=== PATIENT | male | born 1960 | race Asian ===

== ENCOUNTER 2020-01-31 12:10 | Emergency (ER) | payer OTHER ==
[~2020-01-31] VITALS: Ht 170.2 cm; Wt 89.8 kg
[2020-01-31 12:10] VITALS: BP 147/85
--- NOTE | 2020-01-31 12:59 | Emergency Room Report ---
History of Present Illness General Chief Complaint: Male Urogenital Problems Source: Patient Present Illness HPI Disclaimer: Please note that this report is being documented using DRAGON technology. This can lead to erroneous entry secondary to incorrect interpretation by the dictating instrument. HPI: 59-year-old male history of diabetes presents for groin pain. Patient states he has felt a palpable mass over the left side of the scrotum for the past 5 days that became painful this morning. He was seen in clinic and referred here for to rule out testicular torsion. He reports a swelling over the side of the scrotum but not over the testicles itself. He denies pain in the testicles, dysuria, hematuria, penile discharge, hematuria or bleeding. There were no trauma reported. No prior history of infection. Denies recent fever, chills, abdominal pain, nausea, vomiting, diarrhea. PMH: Diabetes PSH: Denied Allergies: Denied Social Hx: Denied Allergies: Coded Allergies: No Known Allergies (Unverified , 01/31/20) COVID-19 Screening Contact w/high risk pt: No Experienced COVID-19 symptoms?: No COVID-19 Testing performed [employer]: No Nursing Documentation-PMH Hx Hypertension: Yes Hx Diabetes: Yes Review of Systems All Other Systems: negative except mentioned in HPI Physical Exam Vital Signs Date Time Temp Pulse Resp B/P (MAP) Pulse Ox O2 Delivery O2 Flow Rate FiO2 01/31/20 12:10 98.2 95 16 147/85 (105) 99 Room Air General: Awake and alert, no acute distress HEENT: NC/AT. EOMI. Resp: Normal work of breathing Abdomen: Soft, nontender, nondistended : Circumcised male. Testicles anatomic position. No tenderness over the testicles, no edema over the scrotum. Just lateral to the scrotum on the left side there is a 3 x 3 palpable firm, non-fluctuant mass with indurated skin. Small pustule on top but is intact. No bleeding or drainage. Skin: Intact. No abrasions, laceration or rash over the exposed skin MSK: Normal tone and bulk. Moving all extremities. No obvious deformity. Neuro: Awake and alert. Mentating appropriately Procedures Incision and Drainage Incision and Drainage : Consent: Verbal Site: Left groin Blade Size: 11 I & D Procedure: betadine prep, sterile drapes applied, sterile dressing applied, gauze wick placed Wound Location: pelvis Wound's Depth, Shape: superficial, linear Wound Length (cm): 2 Wound Explored: clean Irrigated w/ Saline (ccs): 200 Anesthesia: 1% Lidocaine Volume Anesthetic (ccs): 8 Patient Tolerated: Well Complications: None Medical Decision Making Diagnostic Impression: Primary Impression: Groin abscess ER Course 59-year-old male presents for evaluation of painful groin mass. Patient is primarily Persian speaking and history, physical exam, procedure, discharge were done through the use of a Persian staff interpreter. Concern for abscess, cellulitis, testicular torsion, testicular mass among others. No torsion or mass identified but findings are consistent with a superficial abscess. This was incised and drained by me at bedside. See separate procedure section of this note for full details. He tolerated the procedure well. Wound was packed, sterile dressing applied. Will start on Bactrim as the patient is a diabetic. Will discharge with outpatient follow-up. He is to see his clinic in the next week or return with any new or worsening symptoms. He understands and agrees with the treatment plan. CT/MRI/US Diagnostic Results CT/MRI/US Diagnostic Results : Impression IMPRESSION: Unremarkable appearance of the bilateral testicles. No evidence of testicular torsion or epididymal orchitis. Additional scanning performed through the region of interest in the left groin demonstrating approximately 1.7 x 1.7 x 0.9 cm avascular subcutaneous complex fluid collection versus mass which may represent a sebaceous or epidermal inclusion cyst, possibly with superimposed infection/abscess. This is just deep to the skin surface. Correlation with physical exam findings recommended. Follow-up ultrasound recommended to ensure resolution. Dictated By: Rey Garcia M.D. Electronically Signed By:Rey Garcia M.D. Signed Date/Time 01/31/20 1415 Last Vital Signs Date Time Temp Pulse Resp B/P (MAP) Pulse Ox O2 Delivery O2 Flow Rate FiO2 01/31/20 12:10 98.2 95 16 147/85 (105) 99 Room Air Disposition: HOME, SELF-CARE Condition: Stable Scripts Trimethoprim/Sulfamethoxazole 160/800* (BACTRIM DS TABLET*) 1 Each Tablet 1 TAB ORAL Q12H for 7 Days, #14 TAB 0 Refills Prov: Sung Salmon MD 01/31/20 Sung Salmon MD Jan 31, 2020 12:59
--- NOTE | 2020-01-31 13:03 | NUR ---
ED Nurse Note: Pt. walked in to ed c/o lump on left groin, near the scrotom, noticed 5 days ago. pt reports pain onset yesterday and was referred to ed by his clinic. denies any urinary discomfort. no s/s of acute resp distress noted
--- NOTE | 2020-01-31 13:10 | NUR ---
ED Nurse Note: US @ bedside
[2020-01-31] MEDS ORDERED: Lidocaine 1% Plain 30 ml INJ ONE ×2 (13:49→14:00)
[2020-01-31] MEDS ORDERED: BACTRIM DS TAB1 EAC1 ORAL (14:19)
--- NOTE | 2020-01-31 14:21 | Diagnostic Imaging Report ---
Indication: Left testicular pain and swelling Technique: Multiplanar grayscale and duplex Doppler imaging of the testicles/scrotum. Additional imaging performed to the region of interest of the left groin. Comparison: None Findings: The right testicle measures 2.2 x 1.8 x 2.4 cm/11.6 mL. It demonstrates homogenous echogenicity. No discrete mass lesion is appreciated. Color and Doppler flow to the right testicle is visualized and symmetrical compared to the left. There is no asymmetric hyperemia or engorgement of the right epididymis. The left testicle measures 3.4 x 2.1 x 2.7 cm/12.4 mL. It demonstrates homogenous echogenicity. No discrete mass lesion is appreciated. Color Doppler flow to the left testicle is visualized and symmetric when compared to the right. There is no asymmetric hyperemia or engorgement of the left epididymis. There is trace simple-appearing left hydrocele. Additional scanning performed through the region of interest labeled left groin. There is a heterogeneous avascular subcutaneous structure which is located within 1 cm of the skin surface (most superficial components approximately 2 mm deep to the skin surface). There is enhanced through transmission with some internal heterogenicity. No internal color flow seen. IMPRESSION: Unremarkable appearance of the bilateral testicles. No evidence of testicular torsion or epididymal orchitis. Additional scanning performed through the region of interest in the left groin demonstrating approximately 1.7 x 1.7 x 0.9 cm avascular subcutaneous complex fluid collection versus mass which may represent a sebaceous or epidermal inclusion cyst, possibly with superimposed infection/abscess. This is just deep to the skin surface. Correlation with physical exam findings recommended. Follow-up ultrasound recommended to ensure resolution.
--- NOTE | 2020-01-31 14:29 | NUR ---
ED Nurse Note: Incision dressed per MD order.
[2020-01-31 14:40] VITALS: BP 151/84
--- NOTE | 2020-01-31 14:40 | NUR ---
ED Nurse Note: Pt cleared by health care Provider for discharge. DC instructions/prescription were given and explained to pt and verbalized understanding of teachings. All medical deviecs such as ID band removed. Pt is AAO x4, ambulatory and left with all personal belongings.
== END 2020-01-31 14:40 | disposition home or self-care (01) ==
LOC: EMR 12:55
DX: L02.214 Cutaneous abscess of groin (principal); E11.9 Type 2 diabetes mellitus without complications; I10 Essential (primary) hypertension
CPT/HCPCS: 10060; 76870; J2001; Z7502; 99284